=== PATIENT | male | born 1995 | race African-American/Black ===

== ENCOUNTER 2019-01-12 12:59 | Emergency (ER) | payer OTHER ==
[2019-01-12 13:14] VITALS: RESP 16; TEMP 98.5
[2019-01-12] MEDS ORDERED: HYDROcodone/APAP 5-325MG 1 EACH TAB PO STA (13:48)
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
--- NOTE | 2019-01-12 14:43 | XR ---
Thoracic spine HISTORY: Pain, trauma 3 views of the thoracic spine Thoracic vertebral bodies show preserved height, alignment, and bone mineralization. Disc spaces are maintained. IMPRESSION: No acute fracture or subluxation.
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
[2019-01-12 15:37] VITALS: BP 119/72; PULSE 82
== END 2019-01-12 15:37 | disposition home or self-care (01) ==
LOC: EC 12:59
DX: M54.5 Low back pain (principal); F17.200 Nicotine dependence, unspecified, uncomplicated; V43.52XA Car driver injured in collision with other type car in traffic accident, initial encounter; Y92.410 Unspecified street and highway as the place of occurrence of the external cause
CPT/HCPCS: 72072; 72100; 99284

== ENCOUNTER 2020-05-19 00:26 | Emergency (ER) | payer OTHER ==
[2020-05-19 00:45] VITALS: BP 111/71; PULSE 81; TEMP 98.4
[2020-05-19] MEDS ORDERED: BENZOCAINE/MENTHOL LOZENG 1 EACH LOZENGE MUCOUS MEM STA (00:59)
--- NOTE | 2020-05-19 01:03 | ED ---
URI HPI - General Chief Complaint: Upper Respiratory Infection Stated Complaint: Cough Time Seen by Provider: 05/19/20 00:54 Source: patient Mode of arrival: ambulatory Limitations: no limitations - History of Present Illness Initial Comments: 24-year-old male patient presents to the emergency department today for evaluation of coughing up blood. He states that he developed a dry hacking cough several hours ago. Patient states the cough has been very persistent and frequent. He states that on upon arrival home he had a coughing episode and coughed up some mucus that contained streaks of blood. Denies history of similar symptoms. States he has had nasal congestion for the last week. Denies epistaxis. Denies any fever or chills. Denies shortness of breath. States he does have a mild burning sensation in his chest. Denies taking any medication for his symptoms. Denies use of anticoagulant or antiplatelet medications. Denies history of DVT or PE. Denies any recent long car rides. Does admit to smoking cigarettes, about a pack per day. Patient denies any recent rash, abdominal pain, nausea, vomiting, diarrhea, constipation, back pain, numbness, tingling, dizziness, weakness, hematuria, dysuria, urinary urgency, urinary frequency, headache, visual changes, or any other complaints. - Related Data Home Medications Medication Instructions Recorded Confirmed No Known Home Medications 01/12/19 01/12/19 Allergies Allergy/AdvReac Type Severity Reaction Status Date / Time No Known Allergies Allergy Verified 05/19/20 00:45 Review of Systems ROS Statement: Those systems with pertinent positive or pertinent negative responses have been documented in the HPI. ROS Other: All systems not noted in ROS Statement are negative. Past Medical History Past Medical History: No Reported History History of Any Multi-Drug Resistant Organisms: None Reported Past Surgical History: No Surgical Hx Reported Past Psychological History: No Psychological Hx Reported Smoking Status: Current every day smoker Past Alcohol Use History: Occasional Past Drug Use History: Marijuana General Exam Limitations: no limitations General appearance: alert, in no apparent distress, other (This is a well- developed, well-nourished adult male patient in no acute distress. Vital signs upon presentation are temperature 98.4F, pulse 81, respirations 18, blood p ressure 111/71, pulse ox 98% on room air.) Eye exam: Present: normal appearance, PERRL, EOMI. Absent: scleral icterus, conjunctival injection, periorbital swelling ENT exam: Present: mucous membranes moist, TM's normal bilaterally. Absent: normal oropharynx (Pharyngeal erythema. No tonsillar hypertrophy. Uvula is midline.) Respiratory exam: Present: normal lung sounds bilaterally. Absent: respiratory distress, wheezes, rales, rhonchi, stridor Cardiovascular Exam: Present: regular rate, normal rhythm, normal heart sounds. Absent: systolic murmur, diastolic murmur, rubs, gallop, clicks GI/Abdominal exam: Present: soft, normal bowel sounds. Absent: distended, ten derness, guarding, rebound, rigid Neurological exam: Present: alert, oriented X3, CN II-XII intact Psychiatric exam: Present: normal affect, normal mood Skin exam: Present: warm, dry, intact, normal color. Absent: rash Course Vital Signs 05/19/20 05/19/20 00:40 01:22 Temperature 98.4 F Pulse Rate 81 Respiratory 18 16 Rate Blood Pressure 111/71 O2 Sat by Pulse 98 Oximetry Medical Decision Making - Medical Decision Making 24-year-old male patient presents to the emergency department today for evaluation of coughing up blood. Patient states he has had a dry hacking cough throughout the day today. States had one episode where he coughed up some mucus containing streaks of red blood. Denies any further episodes. Denies shortness of breath. Physical examination reveals clear equal lung sounds. He is resting comfortably in bed in no acute distress. Vital signs within normal ranges. Chest x-ray was negative. We did send COVID-19 swab. We did discuss that this could be due to irritation from the cough or a small vessel bleed. He is instructed to use [id number] cough and cold remedies for symptom relief. He is instructed to increase fluids and to rest. He is instructed to quarantine until he has his test results. He is instructed to follow-up with primary care physician for recheck in 1-2 days. Return parameters were discussed in detail. He verbalizes understanding and agrees with this plan. - Radiology Data Radiology results: report reviewed, image reviewed Two-view x-ray of the chest is obtained. Report was reviewed in its entirety. Impression by Dr. Gallegos shows no evidence of acute pulmonary disease. Disposition Clinical Impression: Cough, Hemoptysis Disposition: HOME SELF-CARE Condition: Good Instructions (If sedation given, give patient instructions): Upper Respiratory Infection (ED), Hemoptysis (ED) Additional Instructions: Use [id number] cough and cold remedies for symptom relief. Monitor for signs of worsening bleeding. Return to the emergency department immediately if her symptoms change or worsen. Follow-up through primary care physician for recheck in 1-2 days. Is patient prescribed a controlled substance at d/c from ED?: No Referrals: Melvin Ortiz MD [Primary Care Provider] - 1-2 days Time of Disposition: 01:18
--- NOTE | 2020-05-19 01:16 | XR ---
EXAM: XR Chest, 2 Views CLINICAL HISTORY: ITS.REASON XR Reason: Cough/hemoptysis TECHNIQUE: Frontal and lateral views of the chest. COMPARISON: No relevant prior studies available. FINDINGS: Lungs: Unremarkable. No consolidation. Pleural space: Unremarkable. No pneumothorax. Heart: Unremarkable. No cardiomegaly. Mediastinum: Unremarkable. Bones/joints: Unremarkable. IMPRESSION: No evidence of acute pulmonary disease
[2020-05-19 01:24] VITALS: RESP 16
== END 2020-05-19 01:38 | disposition home or self-care (01) ==
LOC: EC 00:26
DX: R04.2 Hemoptysis (principal); Z20.828 Contact with and (suspected) exposure to other viral communicable diseases; F17.210 Nicotine dependence, cigarettes, uncomplicated; R20.8 Other disturbances of skin sensation
CPT/HCPCS: 71046; 99283; U0003